=== PATIENT | male | born 1955 | race Caucasian/White ===

== ENCOUNTER 2020-08-25 10:21 | Outpatient (CLI) | payer BC ==
--- NOTE | 2020-08-25 10:59 | RAD ---
Exam:2 views left hip HISTORY: Pain COMPARISON: None FINDINGS: Contour of the femoral head is maintained. Hip joint space is preserved. Intact bony pelvis . Sacral ala are preserved. IMPRESSION: No radiographic abnormality.
== END 2020-08-25 10:22 | disposition home or self-care (01) ==
LOC: BICRAD 10:21
PROVIDERS: ATTEND Family Medicine
DX: M25.552 Pain in left hip (principal)

== ENCOUNTER 2023-03-18 10:59 | Outpatient (CLI) | payer BC | END 2023-03-18 11:00 | disposition home or self-care (01) | LOC: RAD 10:59 | PROVIDERS: ATTEND Family Medicine | DX: M25.531 Pain in right wrist (principal) ==